=== PATIENT | female | born 1990 | race Caucasian/White ===

== ENCOUNTER 2016-06-05 04:22 | Inpatient (IN) | payer SELFPAY ==
[2016-06-05] VITALS (20 sets, daily range): BP systolic 93–130; BP diastolic 49–72; PULSE 79–98; TEMP 97.8–98.9
[~2016-06-05 04:22] MED LIST: MOTRIN 800800 MG/TAB PO; PERCOCET 325 MG1 TA2 PO
[2016-06-05 06:24] LABS: BASO # 0.1 (0.0-0.2); BASO % 0.4 % (0.0-2.0); EOS # 0.4 (0.0-0.7); EOS % 3.4 % (0-4.0); GRAN # 8.4 (1.4-6.5); GRAN % 68.8 % (42.2-75.2); HEMATOCRIT 37.9 % (37.0-47.0); HEMOGLOBIN 12.3 g/dl (12.5-16.0); LYMPH # 2.3 (1.2-3.4); LYMPH % 18.8 % (20.0-51.0); MEAN CELL VOLUME 86 fl (80.0-100.0); MEAN CORPUSCULAR HEMOGLOBIN 28 pg (27.0-31.0); MEAN CORPUSCULAR HGB CONC 33 g/dl (33.0-37.0); MEAN PLATELET VOLUME 10.8 fl (7.4-10.4); MONO # 0.9 (0.1-0.6); MONO % 7.2 % (1.7-9.3); PLATELET COUNT 219 K/mm3 (130-400); RED BLOOD COUNT 4.43 M/mm3 (4.10-5.30); REDCELL DISTRIBUTION WIDTH-CV 13.5 % (11.5-14.5); WHITE BLOOD COUNT 12.3 K/mm3 (4.8-10.8)
[2016-06-05] MEDS ORDERED: PERCOCET 325 MG1 TA2 PO (06:35)
[2016-06-05] MEDS ORDERED: MOTRIN 800800 MG/TAB PO (06:35)
[2016-06-05 07:08] LABS: HIV 1/2 Antibodies Non-Reactive; HIV-1p24 Antigen Non-Reactive
[2016-06-05 07:12] LABS: PH 6 (5-8); URINE APPEARANCE Cloudy; URINE BACTERIA None Seen /hpf; URINE BILIRUBIN Negative (NEGATIVE); URINE BLOOD 3+ (NEGATIVE); URINE COLOR Yellow; URINE GLUCOSE Negative (NEGATIVE); URINE KETONE Negative (NEGATIVE); URINE RBC >50 /hpf; URINE UROBILINOGEN Negative (NEGATIVE); URINE WBC 20-50 /hpf
[2016-06-05 07:17] LABS: AMPHETAMINE URINE NEGATIVE; BARBITURATES URINE POSITIVE; BENZODIAZEPINES URINE NEGATIVE; BUPRENORPHINE URINE NEGATIVE; METHADONE URINE NEGATIVE; OPIATES URINE NEGATIVE; OXYCODONE URINE NEGATIVE; PHENCYCLIDINE URINE NEGATIVE; PROPOXYPHENE URINE NEGATIVE; THC CANNABINOIDS URINE NEGATIVE
[2016-06-06 08:00] VITALS: BP 98/44; PULSE 78; TEMP 98.2
[2016-06-06 16:10] VITALS: BP 103/74; PULSE 94; TEMP 98.1
[2016-06-06 21:00] VITALS: BP 120/70; PULSE 97; TEMP 98.6
[2016-06-07 08:00] VITALS: BP 118/58; PULSE 99; TEMP 98
[2016-06-08 22:41] LABS: RUBELLA IGG TORCH EIA Negative (())
[2016-06-10 18:26] LABS: RUBELLA AB IGG 0.87 OD Ratio (>1.09)
== END 2016-06-07 11:00 | disposition home or self-care (01) | DRG 774 ==
LOC: LDRO 04:22 → LDR 05:10 → OB 05:10
PROVIDERS: Obstetrics & Gynecology
PROC: 10D07Z6 Extraction of Products of Conception, Vacuum, Via Natural or Artificial Opening (ICD-10-PCS; principal; 2016-06-05)
PROC: 0W8NXZZ Division of Female Perineum, External Approach (ICD-10-PCS; 2016-06-05)
DX: O62.0 Primary inadequate contractions (principal); O75.3 Other infection during labor; N39.0 Urinary tract infection, site not specified; O76 Abnormality in fetal heart rate and rhythm complicating labor and delivery; O66.0 Obstructed labor due to shoulder dystocia; O34.211 Maternal care for low transverse scar from previous cesarean delivery; N85.8 Other specified noninflammatory disorders of uterus; O09.33 Supervision of pregnancy with insufficient antenatal care, third trimester; O77.0 Labor and delivery complicated by meconium in amniotic fluid; Z37.0 Single live birth; Z3A.38 38 weeks gestation of pregnancy
CPT/HCPCS: J2540; J2590; J2795; J7120